=== PATIENT | female | born 1975 | race Caucasian/White ===

== ENCOUNTER → 2019-08-01 | Outpatient (CLI) | payer OTHER ==
[2019-08-01 17:48] LABS: FOLLICLE STIMULATING HORMONE 15.1 mIU/mL; LUTEINIZING HORMONE 4.8 mIU/mL; PROLACTIN 6.4 NG/ML
[2019-08-06 15:33] LABS: HPV HYBRID CAPTURE II Negative (Negative)
== END ==
LOC: M PLALAB 15:52
PROVIDERS: ATTEND Nurse Practitioner Family
DX: N91.4 Secondary oligomenorrhea (principal)

== ENCOUNTER → 2019-08-01 | Outpatient (CLI) | payer OTHER ==
[2019-08-01 16:50] LABS: BASO % 0.8 % (0.0-1.0); EOS # 0.1 10^3/uL (0.0-0.5); HEMATOCRIT 44.4 % (36.0-47.0); HEMOGLOBIN 14.2 g/dl (12.0-15.5); LYMPH # 1.6 10^3/uL (1.5-5.0); LYMPH % 39.8 % (24.0-44.0); MEAN CORPUSCULAR HEMOGLOBIN 30.1 pg (27.0-33.0); MEAN CORPUSCULAR VOLUME 94.1 fl (80.0-96.0); MONO # 0.5 10^3/uL (0.0-0.8); MONO % 12.2 % (0.0-5.0); NEUTROPHILS # 1.8 10^3/uL (1.5-8.5); NEUTROPHILS % 44.9 % (36.0-66.0); PLATELET COUNT, AUTOMATED 205 10^3/uL (150-450); RED BLOOD COUNT 4.72 10^6/uL (4.00-5.40); WHITE BLOOD COUNT 3.9 10^3/uL (4.0-10.0)
[2019-08-01 17:03] LABS: ALBUMIN 3.9 GM/DL (3.2-5.2); ALT/SGPT 27 U/L (12-78); BILIRUBIN,TOTAL 0.8 MG/DL (0.2-1.0); BLOOD UREA NITROGEN 22 MG/DL (7-18); CALCIUM LEVEL 8.3 MG/DL (8.5-10.1); CARBON DIOXIDE LEVEL 28 MEQ/L (21-32); CHLORIDE LEVEL 103 MEQ/L (98-107); CHOLESTEROL LEVEL 214 MG/DL (<200); CHOLESTEROL RISK RATIO 5.487 (<5); CREATININE FOR GFR 1.02 MG/DL (0.55-1.30); FERRITIN 61 NG/ML (8-252); FREE T4 0.93 NG/DL (0.76-1.46); GLOMERULAR FILTRATION RATE > 60.0 (>58); GLUCOSE, FASTING 85 MG/DL (70-100); HDL CHOLESTEROL 39 MG/DL (>40); IRON (FE) 65 UG/DL (50-170); LDL CHOLESTEROL 144 MG/DL (<100); NON-HDL-C 175 MG/DL; PERCENT SATURATION 17.5 % (13.2-45.0); POTASSIUM SERUM 3.5 MEQ/L (3.5-5.1); SODIUM LEVEL 138 MEQ/L (136-145); THYROID STIMULATING HORMONE 0.621 uIU/ML (0.358-3.740); TOTAL IRON BINDING CAPACITY 371 UG/DL (250-450); TOTAL PROTEIN 7.5 GM/DL (6.4-8.2); TRIGLYCERIDES LEVEL 155 MG/DL (<150)
== END ==
LOC: M WUC 13:48
PROVIDERS: ATTEND Physician Assistant Medical
DX: F41.9 Anxiety disorder, unspecified (principal); D64.9 Anemia, unspecified; F32.9 Major depressive disorder, single episode, unspecified; Z13.220 Encounter for screening for lipoid disorders

== ENCOUNTER → 2019-10-05 | Outpatient (CLI) | payer OTHER ==
--- NOTE | 2019-10-06 04:32 | REP ---
Clinical: Irregular vaginal bleeding. Four technique: Transabdominal pelvic ultrasound with color Doppler evaluation of the ovaries. Findings: Bladder is unremarkable and measures approximately 9.2 x 6.0 x 9.5 cm. Normal anteverted uterus measures 6.4 x 2.7 x 3.8 cm. Endometrial complex measures 3.1 mm thickness. No discrete uterine or endometrial abnormalities appreciated. The bilateral ovaries are relatively normal in appearance and vascularity without torsion. Right ovary measures 2.4 x 1.7 x 2.7 cm (RI 0.71) and includes 1.6 cm simple cyst. Left ovary measures 3.9 x 1.9 x 2.8 cm (RI 0.42) and includes 2.7 cm simple cyst / dominant follicle. No pelvic fluid or adnexal mass lesion. Impression: 1. Essentially normal examination. 2. Ovarian cyst likely representing physiologic change and dominant follicle.
== END ==
LOC: M WHC 14:37
PROVIDERS: ATTEND Specialist
DX: N83.201 Unspecified ovarian cyst, right side (principal); N83.202 Unspecified ovarian cyst, left side; N92.6 Irregular menstruation, unspecified

== ENCOUNTER 2020-04-28 01:46 | Emergency (ER) | payer OTHER ==
[~2020-04-28] VITALS: Ht 152.4 cm; Wt 67.3 kg
[2020-04-28] MEDS ORDERED: ZOLO50TA PO (01:53)
[2020-04-28] MEDS ORDERED: EPIP0.3I2 IM (01:53)
[2020-04-28] MEDS ORDERED: VENTAER INH (01:53)
[2020-04-28] MEDS ORDERED: LABE100T36 PO (01:53)
[2020-04-28] MEDS ORDERED: CETI-24 PO (01:53)
[2020-04-28] MEDS ORDERED: PROT20TA11 PO (01:53)
[2020-04-28] MEDS ORDERED: TETANUS/DIPHTHERIA TOX ADSORB ADULT 0.5ML SYR/VIAL (90714) IM ONE (02:45)
[2020-04-28] MEDS ORDERED: ACETAMINOPHEN 500 MG TAB PO ONE (02:45)
--- NOTE | 2020-04-28 02:58 | REPVR ---
PROCEDURE INFORMATION: Exam: CT Head Without Contrast Exam date and time: 04/28/2020 2:45 AM Age: 44 years old Clinical indication: Injury or trauma; Fall; Initial encounter; Concussion / head injury; Consciousness not specified; Additional info: [facility] TECHNIQUE: Imaging protocol: Computed tomography of the head without contrast. Radiation optimization: All CT scans at this facility use at least one of these dose optimization techniques: automated exposure control; mA and/or kV adjustment per patient size (includes targeted exams where dose is matched to clinical indication); or iterative reconstruction. COMPARISON: No relevant prior studies available. FINDINGS: Brain: Normal. No hemorrhage. Unremarkable white matter. No mass effect. Ventricles: Normal. No ventriculomegaly. Bones/joints: Unremarkable. No acute fracture. Sinuses: Visualized sinuses are unremarkable. No fluid levels. Mastoid air cells: Visualized mastoid air cells are well aerated. Soft tissues: Slight right posterior parietal scalp soft tissue swelling. IMPRESSION: 1. Slight right posterior parietal scalp soft tissue swelling. 2. Otherwise negative noncontrast head CT. Electronically signed by: Qamar Pemberton On 04/28/2020 02:58:27 AM
--- NOTE | 2020-04-28 05:16 | REPVR ---
PROCEDURE INFORMATION: Exam: XR Left Tibia and Fibula Exam date and time: 04/28/2020 4:56 AM Age: 44 years old Clinical indication: Pain; Lower leg; Right; Additional info: [facility]um TECHNIQUE: Imaging protocol: XR Left tibia and fibula. Views: 2 views. COMPARISON: No relevant prior studies available. FINDINGS: Bones/joints: Normal. No fracture. Soft tissues: Normal. IMPRESSION: Negative left tibia and fibula. Electronically signed by: Qamar Pemberton On 04/28/2020 05:16:11 AM
--- NOTE | 2020-04-28 05:17 | REPVR ---
PROCEDURE INFORMATION: Exam: XR Right Hand Exam date and time: 04/28/2020 4:56 AM Age: 44 years old Clinical indication: Pain; Hand; Right; Additional info: [facility] TECHNIQUE: Imaging protocol: XR Right hand. Views: 1 or 2 views. COMPARISON: No relevant prior studies available. 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 No fracture or dislocation. Soft tissues: Normal. IMPRESSION: Negative right hand. Electronically signed by: Qamar Pemberton On 04/28/2020 05:17:28 AM
[2020-04-28 05:20] VITALS: BP 143/80
== END 2020-04-28 05:28 | disposition home or self-care (01) ==
LOC: M ED 01:46
DX: T14.8XXA Other injury of unspecified body region, initial encounter (principal); W01.0XXA Fall on same level from slipping, tripping and stumbling without subsequent striking against object, initial encounter; Y92.018 Other place in single-family (private) house as the place of occurrence of the external cause; J45.909 Unspecified asthma, uncomplicated; F33.9 Major depressive disorder, recurrent, unspecified; K21.9 Gastro-esophageal reflux disease without esophagitis; Z79.899 Other long term (current) drug therapy; Z88.1 Allergy status to other antibiotic agents; Z88.2 Allergy status to sulfonamides

== ENCOUNTER → 2020-08-27 | Outpatient (REF) | payer OTHER ==
[~2020-08-27] MED LIST: CETI-24 PO; EPIP0.3I2 IM; LABE100T36 PO; PROT20TA11 PO; VENTAER INH; ZOLO50TA PO
[2020-08-27 13:43] LABS: BASO % 0.4 % (0.0-1.0); EOS # 0.4 10^3/uL (0.0-0.5); EOS % 7.3 % (0.0-3.0); HEMATOCRIT 38.6 % (36.0-47.0); HEMOGLOBIN 12.6 g/dl (12.0-15.5); LYMPH % 38.7 % (24.0-44.0); MEAN CORPUSCULAR HEMOGLOBIN 29.8 pg (27.0-33.0); MEAN CORPUSCULAR HGB CONC 32.6 g/dl (32.0-36.5); MEAN CORPUSCULAR VOLUME 91.3 fl (80.0-96.0); MONO # 0.5 10^3/uL (0.0-0.8); MONO % 9.7 % (0.0-5.0); NEUTROPHILS # 2.2 10^3/uL (1.5-8.5); NEUTROPHILS % 43.9 % (36.0-66.0); PLATELET COUNT, AUTOMATED 186 10^3/uL (150-450); RED BLOOD COUNT 4.23 10^6/uL (4.00-5.40); WHITE BLOOD COUNT 5.1 10^3/uL (4.0-10.0)
[2020-08-27 14:26] LABS: ALBUMIN 4.4 GM/DL (3.2-5.2); ALT/SGPT 34 U/L (12-78); BILIRUBIN,TOTAL 0.6 MG/DL (0.2-1.0); BLOOD UREA NITROGEN 21 MG/DL (7-18); CALCIUM LEVEL 9.2 MG/DL (8.5-10.1); CARBON DIOXIDE LEVEL 30 MEQ/L (21-32); CHLORIDE LEVEL 103 MEQ/L (98-107); CHOLESTEROL LEVEL 221 MG/DL (<200); CHOLESTEROL RISK RATIO 5.022 (<5); CREATININE FOR GFR 0.85 MG/DL (0.55-1.30); FREE T4 0.99 NG/DL (0.76-1.46); GLOMERULAR FILTRATION RATE > 60.0 (>58); GLUCOSE, FASTING 82 MG/DL (70-100); HDL CHOLESTEROL 44 MG/DL (>40); LDL CHOLESTEROL 148 MG/DL (<100); NON-HDL-C 177 MG/DL; POTASSIUM SERUM 3.9 MEQ/L (3.5-5.1); SODIUM LEVEL 138 MEQ/L (136-145); TOTAL PROTEIN 7.8 GM/DL (6.4-8.2); TRIGLYCERIDES LEVEL 143 MG/DL (<150)
== END ==
LOC: M SFHCPLAZ 12:04
PROVIDERS: ATTEND Physician Assistant Medical
DX: F32.9 Major depressive disorder, single episode, unspecified (principal); D64.9 Anemia, unspecified; I10 Essential (primary) hypertension; Z13.220 Encounter for screening for lipoid disorders

== ENCOUNTER → 2020-10-01 | Outpatient (CLI) | payer OTHER ==
--- NOTE | 2020-10-11 14:29 | REPMRS ---
Patient History The patient states she has not had a clinical breast exam in over a year. Patient is nulliparous. Family history of breast cancer at age 50 or over in maternal aunt, unknown cancer in paternal grandmother. Taking progesterone for 1 year. Digital Woman Screen Mammo: October 01, 2020 - Exam #: [id number] Bilateral CC and MLO view(s) were taken. Technologist: Emily Cruz, Technologist Prior study comparison: February 21, 2019, bilateral mammogram, performed at [facility]. FINDINGS: There are scattered fibroglandular densities. The Volpara volumetric breast density category is:B. There has been no change in the appearance of the mammogram from the prior studies. There is a mild amount of scattered fibroglandular density which is fairly symmetric. There is no interval development of dominant mass, architectural distortion, or grouped microcalcification suggestive of malignancy. 3-D tomosynthesis shows no additional findings. Assessment: BI-RADS/ACR category 1 mammogram. Negative Mammogram. Recommendation Breast MRI of both breasts in 6 months. Routine screening mammogram of both breasts in 1 year (for women over age 40). This patient's [facility] Lifetime Breast Cancer Risk is estimated at 20.1 %. Annual screening Breast MRI scanniing is recommended for patient's whose lifetime risk assessment is over 20%. This mammogram was interpreted with the aid of an FDA-approved computer-aided dectection system. Electronically Signed By: Ronaldo Alfred MD 10/11/20 0538
== END ==
LOC: M WHC 12:54
PROVIDERS: ATTEND Physician Assistant Medical
DX: Z12.31 Encounter for screening mammogram for malignant neoplasm of breast (principal); N64.89 Other specified disorders of breast; Z80.3 Family history of malignant neoplasm of breast

== ENCOUNTER → 2020-10-25 | Outpatient (CLI) | payer OTHER ==
[~2020-10-25] MED LIST changes: +ISOVUE-370 76% 100ML VIAL As Ordered ONE
--- NOTE | 2020-10-25 15:49 | REP ---
INDICATION: INFERTILITY. COMPARISON: None. TECHNIQUE: The endometrium is cannulated by the attending business performance manager. Fluoroscopic guidance is provided during contrast injection and intermittent spot filming is acquired. 0.8 minutes of fluoroscopy time is utilized. FINDINGS: The uterus is tipped to the right. Endometrial cavity is unremarkable. The right isthmic and right ampullary fallopian tube segments are opacified and there is fat prompt peritoneal spillage documenting patency from the right fallopian tube. There is delayed and incomplete filling of the left fallopian tube. Only a portion of the isthmic segment of the fallopian tube was opacified.. IMPRESSION: Tubal patency is confirmed only on the right. 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 Uterus is tipped to the right.. <Electronically signed by Ronaldo Alfred > 10/25/20 [id number]
== END ==
LOC: M RADPRO 11:56
PROVIDERS: ATTEND Specialist
DX: N97.9 Female infertility, unspecified (principal)
CPT/HCPCS: 58340; 74740; Q9967

== ENCOUNTER → 2021-01-30 | Outpatient (CLI) | payer OTHER ==
[~2021-01-30] MED LIST changes: -ISOVUE-370 76% 100ML VIAL As Ordered ONE; -LABE100T36 PO; +LABE100T5 PO
[2021-01-30 10:47] LABS: ESTRADIOL 19.3 PG/ML; HCG, SERUM QUANTITATIVE < 1.0 MIU/ML; LUTEINIZING HORMONE 5.8 mIU/mL; PROGESTERONE 0.21 NG/ML
== END ==
LOC: M PLALAB 08:49
PROVIDERS: ATTEND Obstetrics & Gynecology Reproductive Endocrinology
DX: E28.9 Ovarian dysfunction, unspecified (principal)

== ENCOUNTER → 2021-01-30 | Outpatient (CLI) | payer OTHER ==
--- NOTE | 2021-01-30 10:18 | REP ---
INDICATION: E28.9 OVARIAN DYSFUNCTION COMPARISON: None. TECHNIQUE: Transvaginal examination. FINDINGS: Anteverted uterus measures 7.5 x 3.5 x 4.0 cm. Endometrial complex measures 3.1 mm thickness. Subcentimeter nabothian cysts noted in the cervix. 1.3 x 1.0 x 1.1 cm posterior intramural fibroid identified. Right ovary measures 2.5 x 1.9 x 1.6 cm and includes 4 subcentimeter follicles between 1.5 and 6.8 mm. Left ovary measures 1.5 x 0.7 x 1.1 cm and includes 4 sub cm follicles between 2.0 and 4.3 mm. IMPRESSION: Few bilateral subcentimeter follicles. Uterine findings as above. <Electronically signed by Jose Alfredo Ridley > 01/30/21 1013
== END ==
LOC: M WHC 09:08
PROVIDERS: ATTEND Obstetrics & Gynecology Reproductive Endocrinology
DX: N88.8 Other specified noninflammatory disorders of cervix uteri (principal); E28.9 Ovarian dysfunction, unspecified

== ENCOUNTER → 2021-02-06 | Outpatient (CLI) | payer OTHER ==
[2021-02-06 10:33] LABS: ESTRADIOL < 19.0 PG/ML; LUTEINIZING HORMONE 14.3 mIU/mL; PROGESTERONE 0.21 NG/ML
== END ==
LOC: M PLALAB 08:14
PROVIDERS: ATTEND Obstetrics & Gynecology Reproductive Endocrinology
DX: E28.9 Ovarian dysfunction, unspecified (principal)

== ENCOUNTER → 2021-02-06 | Outpatient (CLI) | payer OTHER ==
--- NOTE | 2021-02-06 09:14 | REP ---
INDICATION: E28.9 OVARIAN DYSFUNCTION COMPARISON: 01/30/2021 TECHNIQUE: Transvaginal pelvic ultrasound examination. FINDINGS: Anteverted uterus measures 9.3 x 2.8 x 3.4 cm. The endometrial complex measures 3.1 mm thickness. Small subcentimeter nabothian cysts in the lower uterine segment are identified. Posterior intramural/submucosal fibroid again noted measuring roughly 1.2 x 1.0 x 1.2 cm. Right ovary measures 1.8 x 1.6 x 1.3 cm and includes 5 subcentimeter follicles between 2.6 and 5.6 mm. Left ovary measures 1.6 x 1.0 x 1.3 cm and includes 4 subcentimeter follicles between 2.2 and 2.9 mm. IMPRESSION: Uterus and ovaries as noted above. <Electronically signed by Jose Alfredo Ridley > 02/06/21 0910
== END ==
LOC: M WHC 07:33
PROVIDERS: ATTEND Obstetrics & Gynecology Reproductive Endocrinology
DX: E28.9 Ovarian dysfunction, unspecified (principal); N88.8 Other specified noninflammatory disorders of cervix uteri

== ENCOUNTER → 2021-02-08 | Outpatient (CLI) | payer OTHER ==
[2021-02-08 10:47] LABS: ESTRADIOL 21.2 PG/ML; LUTEINIZING HORMONE 17.4 mIU/mL; PROGESTERONE 0.21 NG/ML
== END ==
LOC: M PLALAB 08:55
PROVIDERS: ATTEND Obstetrics & Gynecology Reproductive Endocrinology
DX: E28.9 Ovarian dysfunction, unspecified (principal)

== ENCOUNTER → 2021-02-08 | Outpatient (CLI) | payer OTHER ==
--- NOTE | 2021-02-08 12:28 | REP ---
INDICATION: OVARIAN DYSFUNCTION/FERTILITY COMPARISON: 01/30/2021, 02/06/2021 TECHNIQUE: Transvaginal pelvic ultrasound. FINDINGS: Anteverted uterus measures 6.4 x 3.1 x 3.6 cm. The endometrial complex measures 2.1 mm thickness. Posterior intramural fibroid is identified measure 10 mm diameter. Right ovary measures 2.7 x 1.4 x 1.5 cm and includes 6 subcentimeter follicles between 1.2 and 7.0 mm. Left ovary measures 1.5 x 1.4 x 1.4 cm and includes 4 subcentimeter follicles between 1.6 and 2.8 mm. IMPRESSION: Few bilateral subcentimeter follicles. <Electronically signed by Jose Alfredo Ridley > 02/08/21 [id number]
== END ==
LOC: M WHC 10:47
PROVIDERS: ATTEND Obstetrics & Gynecology Reproductive Endocrinology
DX: D25.9 Leiomyoma of uterus, unspecified (principal)

== ENCOUNTER → 2021-02-11 | Outpatient (CLI) | payer OTHER ==
--- NOTE | 2021-02-11 10:17 | REP ---
INDICATION: FERTILITY/OVARIAN DYSFUNCTION COMPARISON: 02/08/2021 TECHNIQUE: Transvaginal B-mode pelvic ultrasound FINDINGS: Anteverted uterus measures 6.7 x 2.9 x 3.7 cm. 11 mm posterior intramural fibroid noted. Endometrial complex measures 4 mm thickness. Right ovary measures 1.9 x 1.5 x 1.5 cm with 6.5 x 11.5 Mm follicle and 4 subcentimeter follicles measuring between 1.6 and 3.8 mm. Left ovary measures 1.9 x 1.0 x 1.5 cm and includes 4 subcentimeter follicles measuring between 1.4 and 2.0 mm. IMPRESSION: Few primarily subcentimeter follicles <Electronically signed by Jose Alfredo Ridley > 02/11/21 1014
== END ==
LOC: M WHC 09:01
PROVIDERS: ATTEND Obstetrics & Gynecology Reproductive Endocrinology
DX: E28.9 Ovarian dysfunction, unspecified (principal)

== ENCOUNTER → 2021-02-11 | Outpatient (CLI) | payer OTHER ==
[2021-02-11 11:19] LABS: ESTRADIOL 43.2 PG/ML; LUTEINIZING HORMONE 20.9 mIU/mL; PROGESTERONE 1.7 NG/ML
== END ==
LOC: M PLALAB 08:43
PROVIDERS: ATTEND Obstetrics & Gynecology Reproductive Endocrinology
DX: E28.9 Ovarian dysfunction, unspecified (principal)

== ENCOUNTER → 2021-02-13 | Outpatient (CLI) | payer OTHER ==
[2021-02-13 12:17] LABS: ESTRADIOL 68.2 PG/ML; LUTEINIZING HORMONE 18.7 mIU/mL; PROGESTERONE 2.48 NG/ML
== END ==
LOC: M PLALAB 08:44
PROVIDERS: ATTEND Obstetrics & Gynecology Reproductive Endocrinology
DX: E28.9 Ovarian dysfunction, unspecified (principal)

== ENCOUNTER → 2021-02-13 | Outpatient (REF) | payer OTHER ==
[2021-02-13 11:20] LABS: BASO % 0.3 % (0.0-1.0); EOS # 0.2 10^3/uL (0.0-0.5); EOS % 2.6 % (0.0-3.0); HEMATOCRIT 42.4 % (36.0-47.0); HEMOGLOBIN 13.8 g/dl (12.0-15.5); LYMPH # 2.9 10^3/uL (1.5-5.0); LYMPH % 47.9 % (24.0-44.0); MEAN CORPUSCULAR HEMOGLOBIN 29.6 pg (27.0-33.0); MEAN CORPUSCULAR HGB CONC 32.5 g/dl (32.0-36.5); MONO # 0.6 10^3/uL (0.0-0.8); MONO % 9.7 % (2.0-8.0); NEUTROPHILS # 2.4 10^3/uL (1.5-8.5); NEUTROPHILS % 39.2 % (36.0-66.0); PLATELET COUNT, AUTOMATED 210 10^3/uL (150-450); RED BLOOD COUNT 4.66 10^6/uL (4.00-5.40); WHITE BLOOD COUNT 6.1 10^3/uL (4.0-10.0)
[2021-02-13 12:13] LABS: ALBUMIN 4.2 GM/DL (3.2-5.2); ALT/SGPT 46 U/L (12-78); BILIRUBIN,TOTAL 0.4 MG/DL (0.2-1.0); BLOOD UREA NITROGEN 21 MG/DL (7-18); CALCIUM LEVEL 9.4 MG/DL (8.5-10.1); CARBON DIOXIDE LEVEL 27 MEQ/L (21-32); CHLORIDE LEVEL 104 MEQ/L (98-107); CREATININE FOR GFR 0.91 MG/DL (0.55-1.30); GLOMERULAR FILTRATION RATE > 60.0 (>58); GLUCOSE, FASTING 94 MG/DL (70-100); POTASSIUM SERUM 3.8 MEQ/L (3.5-5.1); SODIUM LEVEL 140 MEQ/L (136-145); TOTAL PROTEIN 7.6 GM/DL (6.4-8.2)
== END ==
LOC: M SFHCPLAZ 08:43
PROVIDERS: ATTEND Physician Assistant Medical
DX: K21.9 Gastro-esophageal reflux disease without esophagitis (principal); Z13.220 Encounter for screening for lipoid disorders

== ENCOUNTER → 2021-02-13 | Outpatient (CLI) | payer OTHER ==
--- NOTE | 2021-02-13 10:19 | REP ---
INDICATION: E28.9 OVARIAN DYSFUNCTION. COMPARISON: 02/11/2021. TECHNIQUE: Real-time sonographic evaluation pelvis performed to evaluate ovarian follicles. FINDINGS: Uterus measures 7.1 x 2.8 x 3.8 cm. The endometrium has a trilaminar appearance, with a thickness of 6 mm. Posterior fibroid in the body of the uterus measures 1 cm in diameter. Right ovary measures 2.1 x 1.4 x 1.5 cm. A dominant follicle measures 11 x 7 mm. There are 2 other subcentimeter follicles. Left ovary measures 2.3 x 0.9 x 1.6 cm. There are no follicles greater than 1 cm in diameter. A single follicle is visualized 2 mm in diameter. IMPRESSION: The largest follicle is in the right ovary 11 x 7 mm. There are no other follicles greater than 1 cm in diameter. <Electronically signed by Tom Helms > 02/13/21 1016
== END ==
LOC: M WHC 09:08
PROVIDERS: ATTEND Obstetrics & Gynecology Reproductive Endocrinology
DX: E28.9 Ovarian dysfunction, unspecified (principal)

== ENCOUNTER → 2021-02-15 | Outpatient (CLI) | payer OTHER ==
--- NOTE | 2021-02-17 12:16 | REP ---
INDICATION: OVARIAN DYSFUNCTION COMPARISON: None. TECHNIQUE: Transvaginal pelvic ultrasound.. FINDINGS: Anteverted uterus measures 6.8 x 3.1 x 3.5 cm. The endometrial complex measures 6 mm thickness excluding small amount of endocervical fluid. 1 cm posterior subserosal fibroid noted. Right ovary measures 2.2 x 1.4 x 1.5 cm (RI 0.72) and includes 13 x 10 mm follicle, 3 mm and 4 mm follicle. Left ovary measures 2.7 x 0.8 x 2.4 cm (RI 0.58) and includes 3 mm follicle. IMPRESSION: Few small follicles. 1 cm posterior subserosal fibroid. <Electronically signed by Jose Alfredo Ridley > 02/17/21 [id number]
== END ==
LOC: M WHC 09:24
PROVIDERS: ATTEND Obstetrics & Gynecology Reproductive Endocrinology
DX: E28.9 Ovarian dysfunction, unspecified (principal)

== ENCOUNTER → 2021-02-15 | Outpatient (CLI) | payer OTHER ==
[2021-02-15 13:26] LABS: LUTEINIZING HORMONE 23.1 mIU/mL; PROGESTERONE 1.75 NG/ML
[2021-02-15 13:52] LABS: ESTRADIOL 109.7 PG/ML
== END ==
LOC: M PLALAB 08:56
PROVIDERS: ATTEND Obstetrics & Gynecology Reproductive Endocrinology
DX: E28.9 Ovarian dysfunction, unspecified (principal)

== ENCOUNTER → 2021-02-18 | Outpatient (CLI) | payer OTHER ==
--- NOTE | 2021-02-18 09:27 | REP ---
INDICATION: E28.9 OVARIAN DYSFUNCTION COMPARISON: 02/15/2021 TECHNIQUE: Transvaginal pelvic ultrasound. FINDINGS: Anteverted uterus measures 7.9 x 3.2 x 4.0 cm. The endometrial complex measures 6.5 mm thickness excluding small amount of fluid in the cervical region. 1.1 cm posterior intramural fibroid suggested. Right ovary measures 2.3 x 1.7 x 1.5 cm with 10 x 16 mm follicle and 1.5 mm and 2.6 mm follicles. Left ovary measures 1.6 x 0.9 x 1.3 cm and includes 4 subcentimeter follicles between 1.8 mm and 3.3 mm. IMPRESSION: Predominantly subcentimeter follicles as noted above. Small intramural fibroid. <Electronically signed by Jose Alfredo Ridley > 02/18/21 [id number]
== END ==
LOC: M WHC 08:28
PROVIDERS: ATTEND Obstetrics & Gynecology Reproductive Endocrinology
DX: D25.1 Intramural leiomyoma of uterus (principal)

== ENCOUNTER → 2021-02-18 | Outpatient (CLI) | payer OTHER ==
[2021-02-18 15:52] LABS: ESTRADIOL 112.2 PG/ML; LUTEINIZING HORMONE 7.5 mIU/mL; PROGESTERONE 1.9 NG/ML
== END ==
LOC: M PLALAB 09:10
PROVIDERS: ATTEND Obstetrics & Gynecology Reproductive Endocrinology
DX: E28.9 Ovarian dysfunction, unspecified (principal)

== ENCOUNTER → 2021-02-20 | Outpatient (CLI) | payer OTHER ==
[2021-02-20 11:13] LABS: ESTRADIOL 170.4 PG/ML; LUTEINIZING HORMONE 14.8 mIU/mL; PROGESTERONE 0.69 NG/ML
== END ==
LOC: M PLALAB 08:19
PROVIDERS: ATTEND Obstetrics & Gynecology Reproductive Endocrinology
DX: E28.9 Ovarian dysfunction, unspecified (principal)

== ENCOUNTER → 2021-02-20 | Outpatient (CLI) | payer OTHER ==
--- NOTE | 2021-02-20 11:31 | REP ---
INDICATION: E28.9 OVARIAN DYSFUNCTION COMPARISON: 02/18/2021 TECHNIQUE: Transvaginal pelvic ultrasound. FINDINGS: Anteverted uterus measures 8.0 x 3.2 x 4.2 cm. The endometrial complex measures 8.1 mm thickness. Small amount of endocervical fluid is identified. Stable posterior intramural fibroid measures 1.3 cm maximal diameter. Right ovary measures 2.8 x 1.7 x 2.3 cm and includes 13 x 19 mm follicle and 3 subcentimeter follicles between 1.2 and 2.6 mm. Left ovary measures 1.4 x 0.7 x 1.4 cm and includes 3 subcentimeter follicles between 1.3 and 1.6 mm. IMPRESSION: Few follicles as noted above. <Electronically signed by Jose Alfredo Ridley > 02/20/21 112
== END ==
LOC: M WHC 08:37
PROVIDERS: ATTEND Obstetrics & Gynecology Reproductive Endocrinology
DX: E28.9 Ovarian dysfunction, unspecified (principal); N85.4 Malposition of uterus

== ENCOUNTER → 2021-09-11 | Outpatient (CLI) | payer OTHER ==
[2021-09-11 13:58] LABS: BASO % 0.6 % (0.0-1.0); EOS # 0.6 10^3/uL (0.0-0.5); EOS % 9.9 % (0.0-3.0); HEMATOCRIT 40.7 % (36.0-47.0); HEMOGLOBIN 13.5 g/dl (12.0-15.5); LYMPH # 2.4 10^3/uL (1.5-5.0); LYMPH % 37.1 % (24.0-44.0); MEAN CORPUSCULAR HEMOGLOBIN 30.5 pg (27.0-33.0); MEAN CORPUSCULAR HGB CONC 33.2 g/dl (32.0-36.5); MEAN CORPUSCULAR VOLUME 92.1 fl (80.0-96.0); MONO # 0.7 10^3/uL (0.0-0.8); MONO % 10.5 % (2.0-8.0); NEUTROPHILS # 2.7 10^3/uL (1.5-8.5); NEUTROPHILS % 41.7 % (36.0-66.0); PLATELET COUNT, AUTOMATED 194 10^3/uL (150-450); RED BLOOD COUNT 4.42 10^6/uL (4.00-5.40); WHITE BLOOD COUNT 6.4 10^3/uL (4.0-10.0)
[2021-09-11 14:44] LABS: ALBUMIN 3.8 GM/DL (3.2-5.2); ALT/SGPT 35 U/L (12-78); BILIRUBIN,TOTAL 0.4 MG/DL (0.2-1.0); BLOOD UREA NITROGEN 16 MG/DL (7-18); CALCIUM LEVEL 9.2 MG/DL (8.5-10.1); CARBON DIOXIDE LEVEL 28 MEQ/L (21-32); CHLORIDE LEVEL 107 MEQ/L (98-107); CHOLESTEROL LEVEL 212 MG/DL (<200); CHOLESTEROL RISK RATIO 4.711 (<5); CREATININE FOR GFR 0.83 MG/DL (0.55-1.30); FREE T4 0.97 NG/DL (0.76-1.46); GLOMERULAR FILTRATION RATE > 60.0 (>58); GLUCOSE, FASTING 91 MG/DL (70-100); HDL CHOLESTEROL 45 MG/DL (>40); LDL CHOLESTEROL 143 MG/DL (<100); NON-HDL-C 167 MG/DL; POTASSIUM SERUM 4.1 MEQ/L (3.5-5.1); SODIUM LEVEL 142 MEQ/L (136-145); TOTAL PROTEIN 7.2 GM/DL (6.4-8.2); TRIGLYCERIDES LEVEL 121 MG/DL (<150)
== END ==
LOC: M PLALAB 09:33
PROVIDERS: ATTEND Physician Assistant Medical
DX: F41.9 Anxiety disorder, unspecified (principal)

== ENCOUNTER → 2021-12-31 | Outpatient (CLI) | payer OTHER | LOC: M PLALAB 14:00 | PROVIDERS: ATTEND Physician Assistant | DX: J45.20 Mild intermittent asthma, uncomplicated (principal) ==

== ENCOUNTER → 2022-01-14 | Outpatient (REF) | payer OTHER | LOC: M SFHCWAGY 17:21 | PROVIDERS: ATTEND Specialist | DX: Z01.419 Encounter for gynecological examination (general) (routine) without abnormal findings (principal) ==

== ENCOUNTER → 2022-02-24 | Outpatient (CLI) | payer OTHER ==
[2022-02-24 17:46] LABS: HCG, SERUM QUALITATIVE NEGATIVE (NEGATIVE)
== END ==
LOC: M PLALAB 14:58
PROVIDERS: ATTEND Specialist
DX: N64.4 Mastodynia (principal)

== ENCOUNTER → 2022-09-18 | Outpatient (CLI) | payer OTHER ==
[~2022-09-18] MED LIST changes: -LABE100T5 PO; +LABE100T71 PO
[2022-09-18 14:09] LABS: BASO % 0.6 % (0.0-1.0); EOS # 0.4 10^3/uL (0.0-0.5); EOS % 8.4 % (0.0-3.0); HEMATOCRIT 41.7 % (36.0-47.0); HEMOGLOBIN 13.3 g/dl (12.0-15.5); LYMPH % 38.4 % (24.0-44.0); MEAN CORPUSCULAR HEMOGLOBIN 28.9 pg (27.0-33.0); MEAN CORPUSCULAR HGB CONC 31.9 g/dl (32.0-36.5); MEAN CORPUSCULAR VOLUME 90.7 fl (80.0-96.0); MONO # 0.5 10^3/uL (0.0-0.8); MONO % 10.1 % (2.0-8.0); NEUTROPHILS # 2.2 10^3/uL (1.5-8.5); NEUTROPHILS % 42.3 % (36.0-66.0); PLATELET COUNT, AUTOMATED 196 10^3/uL (150-450); WHITE BLOOD COUNT 5.2 10^3/uL (4.0-10.0)
[2022-09-18 14:42] LABS: ALBUMIN 4.4 G/DL (3.2-5.2); ALKALINE PHOSPHATASE 87 U/L (46-116); ALT/SGPT 47 U/L (7.0-40); AST/SGOT 39 U/L (<34); BILIRUBIN,TOTAL 0.6 MG/DL (0.3-1.2); BLOOD UREA NITROGEN 20 MG/DL (9-23); CALCIUM LEVEL 9.7 MG/DL (8.5-10.1); CARBON DIOXIDE LEVEL 30 MMOL/L (20-31); CHLORIDE LEVEL 103 MMOL/L (98-107); CHOLESTEROL LEVEL 252 MG/DL (<200); CHOLESTEROL RISK RATIO 5.27 (<5); CREATININE FOR GFR 0.95 MG/DL (0.55-1.30); GLOMERULAR FILTRATION RATE > 60.0 (>58); GLUCOSE, FASTING 93 MG/DL (60-100); HDL CHOLESTEROL 47.8 MG/DL (>40); LDL CHOLESTEROL 173.4 MG/DL (<100); NON-HDL-C 204 MG/DL; POTASSIUM SERUM 4.1 MMOL/L (3.5-5.1); SODIUM LEVEL 139 MMOL/L (136-145); THYROID STIMULATING HORMONE 2.014 uIU/ML (0.55-4.78); TOTAL PROTEIN 7.7 G/DL (5.7-8.2); TRIGLYCERIDES LEVEL 154 MG/DL (<150)
[2022-09-18 14:43] LABS: TOTAL 25(OH) VITAMIN D 28.6 NG/ML (20.0-100.0)
[2022-09-18 14:44] LABS: FREE T4 1.27 NG/DL (0.89-1.76)
== END ==
LOC: M PLALAB 11:56
PROVIDERS: ATTEND Physician Assistant
DX: E55.9 Vitamin D deficiency, unspecified (principal); I10 Essential (primary) hypertension; E03.9 Hypothyroidism, unspecified; E78.5 Hyperlipidemia, unspecified

== ENCOUNTER → 2022-10-14 | Outpatient (CLI) | payer OTHER ==
[2022-10-14 13:50] LABS: ALBUMIN 4.3 G/DL (3.2-5.2); BILIRUBIN,DIRECT 0.2 MG/DL (<0.4); BILIRUBIN,TOTAL 0.8 MG/DL (0.3-1.2); TOTAL PROTEIN 7.7 G/DL (5.7-8.2)
== END ==
LOC: M LAB 12:07
PROVIDERS: ATTEND Physician Assistant
DX: R74.8 Abnormal levels of other serum enzymes (principal)

== ENCOUNTER → 2022-10-29 | Outpatient (CLI) | payer OTHER | LOC: M WHC 09:56 | PROVIDERS: ATTEND Physician Assistant | DX: Z12.31 Encounter for screening mammogram for malignant neoplasm of breast (principal) ==

== ENCOUNTER → 2023-04-09 | Outpatient (CLI) | payer OTHER ==
[2023-04-09 19:39] LABS: ALBUMIN 4.2 G/DL (3.2-5.2); ALKALINE PHOSPHATASE 83 U/L (46-116); ALT/SGPT 32 U/L (7.0-40); AST/SGOT 30 U/L (<34); BILIRUBIN,DIRECT < 0.1 MG/DL (<0.4); BILIRUBIN,TOTAL 0.6 MG/DL (0.3-1.2); TOTAL PROTEIN 7.2 G/DL (5.7-8.2)
== END ==
LOC: M PLALAB 14:49
PROVIDERS: ATTEND Physician Assistant
DX: R74.8 Abnormal levels of other serum enzymes (principal)

== ENCOUNTER → 2023-09-30 | Outpatient (CLI) | payer OTHER ==
[2023-09-30 17:54] LABS: BASO % 0.8 % (0.0-1.0); EOS # 0.3 10^3/uL (0.0-0.5); EOS % 6.3 % (0.0-3.0); HEMATOCRIT 37.9 % (36.0-47.0); HEMOGLOBIN 12.5 g/dl (12.0-15.5); LYMPH # 1.9 10^3/uL (1.5-5.0); LYMPH % 47.1 % (24.0-44.0); MEAN CORPUSCULAR HEMOGLOBIN 29.8 pg (27.0-33.0); MEAN CORPUSCULAR VOLUME 90.2 fl (80.0-96.0); MONO # 0.3 10^3/uL (0.0-0.8); MONO % 7.8 % (2.0-8.0); NEUTROPHILS # 1.5 10^3/uL (1.5-8.5); NEUTROPHILS % 37.7 % (36.0-66.0); PLATELET COUNT, AUTOMATED 177 10^3/uL (150-450)
[2023-09-30 17:55] LABS: C REACTIVE PROTEIN QUANTITATIV < 0.40 MG/DL (<1.0)
[2023-09-30 17:57] LABS: ALBUMIN 4.2 G/DL (3.2-5.2); ALKALINE PHOSPHATASE 92 U/L (46-116); ALT/SGPT 36 U/L (7.0-40); AST/SGOT 29 U/L (<34); BILIRUBIN,TOTAL 0.6 MG/DL (0.3-1.2); BLOOD UREA NITROGEN 23 MG/DL (9-23); CALCIUM LEVEL 9.6 MG/DL (8.5-10.1); CARBON DIOXIDE LEVEL 30 MMOL/L (20-31); CHLORIDE LEVEL 103 MMOL/L (98-107); CHOLESTEROL LEVEL 240 MG/DL (<200); CHOLESTEROL RISK RATIO 4.97 (<5); GLOMERULAR FILTRATION RATE > 60.0 (>58); GLUCOSE, FASTING 77 MG/DL (60-100); HDL CHOLESTEROL 48.2 MG/DL (>40); LDL CHOLESTEROL 171.4 MG/DL (<100); NON-HDL-C 191.8 MG/DL; POTASSIUM SERUM 3.9 MMOL/L (3.5-5.1); RHEUMATOID FACTOR QUANT < 3.5 IU/ML (<14); SODIUM LEVEL 137 MMOL/L (136-145); THYROID STIMULATING HORMONE 2.334 uIU/ML (0.55-4.78); TOTAL 25(OH) VITAMIN D 29.9 NG/ML (20.0-100.0); TOTAL PROTEIN 7.7 G/DL (5.7-8.2); TRIGLYCERIDES LEVEL 102 MG/DL (<150)
[2023-09-30 17:58] LABS: FREE T4 1.23 NG/DL (0.89-1.76)
[2023-09-30 18:13] LABS: ERYTHROCYTE SEDIMENTATION RATE 4 mm/hr (0-20)
== END ==
LOC: M PLALAB 14:11
PROVIDERS: ATTEND Physician Assistant
DX: E55.9 Vitamin D deficiency, unspecified (principal); E78.5 Hyperlipidemia, unspecified; E03.9 Hypothyroidism, unspecified; Z83.2 Family history of diseases of the blood and blood-forming organs and certain disorders involving the immune mechanism; E28.39 Other primary ovarian failure; I73.00 Raynaud's syndrome without gangrene

== ENCOUNTER → 2023-11-24 | Outpatient (REF) | payer OTHER ==
[~2023-11-24] MED LIST changes: +LABE100T40 PO; -LABE100T71 PO
== END ==
LOC: M SFHCWAGY 13:32
PROVIDERS: ATTEND Specialist
DX: Z01.419 Encounter for gynecological examination (general) (routine) without abnormal findings (principal)

== ENCOUNTER → 2023-11-27 | Outpatient (CLI) | payer OTHER | LOC: M WHC 10:57 | PROVIDERS: ATTEND Specialist | DX: Z12.31 Encounter for screening mammogram for malignant neoplasm of breast (principal) ==

== ENCOUNTER → 2023-12-08 | Outpatient (REF) | payer OTHER ==
[2023-12-08 13:59] LABS: ESTRADIOL 402.8 PG/ML; LUTEINIZING HORMONE 36.3 mIU/ML; PROLACTIN 14.91 NG/ML
[2023-12-08 14:00] LABS: FOLLICLE STIMULATING HORMONE 21.9 mIU/ML; PROGESTERONE 3.65 NG/ML
== END ==
LOC: M LABDRWAD 13:04 → M SFHCWAGY 13:04
PROVIDERS: ATTEND Specialist
DX: N92.6 Irregular menstruation, unspecified (principal)

== ENCOUNTER 2024-10-21 10:38 | Day surgery (SDC) | payer OTHER ==
[~2024-10-21] VITALS: Ht 152.4 cm; Wt 63.0 kg
[~2024-10-21 10:38] MED LIST changes: +BLAC40CA PO; +CHASTE TREE; +LEVO50TA5 PO; +MULTTAB61 PO; +PROG1CAP9 PO; +PROM25TA12 PO
[2024-10-21] MEDS ORDERED: LIDOCAINE 2% 100MG/5ML SDV (FOR ANES.) As Ordered ONE (11:32)
[2024-10-21] MEDS ORDERED: propofoL 200 MG/20 ML VIAL As Ordered ONE (11:32)
[2024-10-21 12:36] VITALS: TEMP 97.4
[2024-10-21 12:57] VITALS: BP 123/84; O2SAT 100
== END 2024-10-21 13:10 | disposition home or self-care (01) ==
LOC: M OPP 10:38
PROVIDERS: ATTEND Surgery
DX: Z12.11 Encounter for screening for malignant neoplasm of colon (principal); R19.5 Other fecal abnormalities; Z88.2 Allergy status to sulfonamides; Z88.8 Allergy status to other drugs, medicaments and biological substances; Z79.899 Other long term (current) drug therapy

== ENCOUNTER → 2024-10-27 | Outpatient (CLI) | payer OTHER ==
[2024-10-27 15:43] LABS: BASO % 0.8 % (0.0-1.0); EOS # 0.4 10^3/uL (0.0-0.5); EOS % 7.4 % (0.0-3.0); HEMATOCRIT 39.4 % (36.0-47.0); HEMOGLOBIN 13.1 g/dl (12.0-15.5); LYMPH # 2.5 10^3/uL (1.5-5.0); LYMPH % 46.8 % (24.0-44.0); MEAN CORPUSCULAR HGB CONC 33.2 g/dl (32.0-36.5); MEAN CORPUSCULAR VOLUME 90.2 fl (80.0-96.0); MONO # 0.5 10^3/uL (0.0-0.8); MONO % 8.7 % (2.0-8.0); NEUTROPHILS # 1.9 10^3/uL (1.5-8.5); NEUTROPHILS % 36.1 % (36.0-66.0); PLATELET COUNT, AUTOMATED 207 10^3/uL (150-450); RED BLOOD COUNT 4.37 10^6/uL (4.00-5.40); WHITE BLOOD COUNT 5.3 10^3/uL (4.0-10.0)
[2024-10-27 16:09] LABS: THYROID STIMULATING HORMONE 2.098 uIU/ML (0.55-4.78)
[2024-10-27 16:15] LABS: ALBUMIN 4.3 G/DL (3.2-5.2); ALKALINE PHOSPHATASE 96 U/L (35-104); ALT/SGPT 34 U/L (7.0-40); AST/SGOT 26 U/L (<34); BILIRUBIN,TOTAL 0.5 MG/DL (0.3-1.2); BLOOD UREA NITROGEN 19 MG/DL (9-23); CARBON DIOXIDE LEVEL 30 MMOL/L (20-31); CHLORIDE LEVEL 105 MMOL/L (98-107); CHOLESTEROL LEVEL 296 MG/DL (<200); CHOLESTEROL RISK RATIO 5.07 (<5); CREATININE FOR GFR 0.82 MG/DL (0.55-1.30); GLOMERULAR FILTRATION RATE > 60.0 (>58); GLUCOSE, FASTING 92 MG/DL (60-100); HDL CHOLESTEROL 58.3 MG/DL (>40); LDL CHOLESTEROL 217.3 MG/DL (<100); NON-HDL-C 237.7 MG/DL; POTASSIUM SERUM 4.3 MMOL/L (3.5-5.1); SODIUM LEVEL 143 MMOL/L (136-145); TRIGLYCERIDES LEVEL 102 MG/DL (<150)
[2024-10-27 16:26] LABS: HEMOGLOBIN A1c 5.2 % (4.0-6.0)
== END ==
LOC: M PLALAB 13:07
PROVIDERS: ATTEND Physician Assistant
DX: E03.9 Hypothyroidism, unspecified (principal)

== ENCOUNTER → 2024-12-01 | Outpatient (CLI) | payer OTHER | LOC: M WHC 15:53 | PROVIDERS: ATTEND Specialist | DX: Z12.31 Encounter for screening mammogram for malignant neoplasm of breast (principal) ==

== ENCOUNTER → 2024-12-26 | Outpatient (REF) | payer OTHER ==
[2024-12-29 16:08] LABS: HPV APTIMA Not Detected (Not Detected)
== END ==
LOC: M SFHCWAGY 12:50
PROVIDERS: ATTEND Specialist
DX: Z01.419 Encounter for gynecological examination (general) (routine) without abnormal findings (principal)

== ENCOUNTER 2025-08-15 08:33 | Emergency (ER) | payer OTHER ==
[~2025-08-15] VITALS: Ht 152.4 cm; Wt 66.1 kg
[2025-08-15 08:43] VITALS: TEMP 97
[2025-08-15 09:58] VITALS: BP 167/99; O2SAT 99
== END 2025-08-15 10:10 | disposition home or self-care (01) ==
LOC: M ED 08:33
DX: S00.81XA Abrasion of other part of head, initial encounter (principal); V49.40XA Driver injured in collision with unspecified motor vehicles in traffic accident, initial encounter; Y92.9 Unspecified place or not applicable; Y93.9 Activity, unspecified; Y99.9 Unspecified external cause status; I10 Essential (primary) hypertension; E78.5 Hyperlipidemia, unspecified; J45.909 Unspecified asthma, uncomplicated; F41.9 Anxiety disorder, unspecified; G43.909 Migraine, unspecified, not intractable, without status migrainosus; M41.9 Scoliosis, unspecified; M50.321 Other cervical disc degeneration at C4-C5 level; M50.322 Other cervical disc degeneration at C5-C6 level; N20.0 Calculus of kidney; M51.369 Other intervertebral disc degeneration, lumbar region without mention of lumbar back pain or lower extremity pain; Z79.890 Hormone replacement therapy; Z79.899 Other long term (current) drug therapy; Z88.6 Allergy status to analgesic agent; Z88.2 Allergy status to sulfonamides